=== PATIENT | male | born 1950 | race Caucasian/White ===

== ENCOUNTER → 2017-03-19 16:01 | Outpatient (CLI) | payer BC, SELFPAY ==
[2017-03-19 18:47] LABS: PSA,Total- Diagnostic 8.78 ng/mL (0.0-4.0)
== END ==
PROVIDERS: Family Provider Family Medicine; PCP Family Medicine; Visit Provider Nurse Practitioner Adult Health
DX: R97.20 Elevated prostate specific antigen [PSA] (principal)
CPT/HCPCS: 36415; 84153

== ENCOUNTER → 2017-04-16 17:48 | Outpatient (CLI) | payer BC, SELFPAY ==
--- NOTE | 2017-04-16 | IMM_PTH ---
PATIENT: NEIL POWERS LOC: [facility] U#:[id number] AGE/SX: 74/M ROOM: RE04/16/[address]: Dr. Gregor Frazier MD : 1950 BED: DIS: SPEC #: [id number] RECD: 04/18/17 11:41 STATUS: HOMA REKarime #: [id number] [place]: 04/16/17 00:[address]: Gregor Frazier DEPT: IMMUNOHISTOCHEMISTRY RECD BY: Adriana Zamora ENTERED: 04/18/17 11:43 SP TYPE: IMMUNO OTHR DR: Dr. Dom George MD Tissues: C - PROSTATE RIGHT F - PROSTATE LEFT Procedures: 34BE12 (add) P40 (add) 34BE12 (initial) PHYSICIAN & INSTITUTION [facility] [id number] SPECIMEN INFORMATION: Tissue Source: C ? Right prostate, base, core biopsy, F - Left prostate, base, core biopsy Clinical Info: Elevated PSA Specimen Number: [id number] C & F CPT code: 89348, 87447 x3 METHODOLOGY: Deparaffinized sections of prefer/formalin-fixed tissue or PAP/DQ stained slides are incubated with monoclonal/polyclonal antibodies/oligonucleotide probes. Localization is made via biotin free immunoperoxidase method. Appropriate controls are performed and reacted as expected. Results on target cell population are indicated in the following table: RESULTS: ANTIBODY / CLONE RESULT Block C P40 (BC28) positive 34BE12 (34BE12) positive Block F P40 (BC28) positive 34BE12 (34BE12) positive These tests were developed and their performance characteristics determined by [facility]. They may not have been cleared or approved by the U.S. Food and Drug Administration. The FDA has determined that such clearance or approval is not necessary. INTERPRETATION: C. Right prostate, base, core biopsy: Focal high-grade prostatic intraepithelial neoplasia (HGPIN). F. Left prostate, base, core biopsy: Focal high-grade prostatic intraepithelial neoplasia (HGPIN). SJ:charleen 04/19/17
--- NOTE | 2017-04-16 11:15 | PROSBIL_PTH ---
PATIENT: NEIL POWERS LOC: [facility] U#:[id number] AGE/SX: 74/M ROOM: RE04/16/[address]: Dr. Gregor Frazier MD : 1950 BED: DIS: SPEC #: [id number] RECD: 04/16/17 17:00 STATUS: HOMA [place] #: [id number] [place]: 04/16/17 11:[address]: Gregor Frazier DEPT: SURGICAL PATHOLOGY RECD BY: Robson Simons ENTERED: 04/17/17 10:39 SP TYPE: PROST BX SARAH DR: Dr. Dom George MD Tissues: A - PROSTATE RIGHT B - PROSTATE RIGHT C - PROSTATE RIGHT D - PROSTATE LEFT E - PROSTATE LEFT F - PROSTATE LEFT Procedures: PROSTATE BX HEADER OPERATION: Prostate biopsy PRE-OP DIAGNOSIS: Elevated PSA TISSUE SUBMITTED: A - Right apex, B - Right mid, C - Right base, D - Left apex, E - Left mid, F - Left base MICROSCOPIC DIAGNOSIS A. Right prostate, apex, core biopsy: Prostatic tissue, negative for malignancy. Focal mild chronic inflammation, minimal acute inflammation and atrophy. B. Right prostate, mid, core biopsy: Prostatic tissue, negative for malignancy. Focal mild chronic inflammation, minimal acute inflammation and atrophy. C. Right prostate, base, core biopsy: Focal high-grade prostatic intraepithelial neoplasia (HGPIN). See comment. D. Left prostate, apex, core biopsy: Prostatic tissue, negative for malignancy. Atrophy, mild chronic inflammation and minimal acute inflammation. E. Left prostate, mid, core biopsy: Prostatic tissue, negative for malignancy. Focal mild chronic inflammation. F. Left prostate, base, core biopsy: Focal high-grade prostatic intraepithelial neoplasia (HGPIN). See comment. SJ:rg 04/18/17 COMMENT C & F. Immunohistochemistry ([id number]) supports the above diagnosis. MICROSCOPIC DESCRIPTION Slides are reviewed. GROSS DESCRIPTION A - Received is one container designated prostate, right apex. The specimen consists of two elongated fragments of light martinez-white soft tissue each measuring 1 cm in length and 0.1 cm in diameter. The specimen is totally submitted in one cassette. B - Received is one container designated prostate, right mid. The specimen consists of two elongated fragments of light martinez-white soft tissue measuring 1 and 1.5 cm in length and 0.1 cm in diameter. The specimen is totally submitted in one cassette. C - Received is one container designated prostate, right base. The specimen consists of four elongated fragments of light martinez-white soft tissue measuring 0.3 to 0.5 cm in length and 0.1 cm in diameter. The specimen is totally submitted in one cassette. D - Received is one container designated prostate, left apex. The specimen consists of two elongated fragments of light martinez-white soft tissue each measuring 1 cm in length and 0.1 cm in diameter. The specimen is totally submitted in one cassette. E - Received is one container designated prostate, left mid. The specimen consists of two elongated fragments of light martinez-white soft tissue measuring 1 and 1.8 cm in length and 0.1 cm in diameter. The specimen is totally submitted in one cassette. F - Received is one container designated prostate, left base. The specimen consists of two elongated fragments of light martinez-white soft tissue each measuring 1.5 cm in length and 0.1 cm in diameter. The specimen is totally submitted in one cassette. / SJ:rg 04/17/17 TC:5 CPT: 57757 x6
== END ==
PROVIDERS: Family Provider Family Medicine; Visit Provider Urology
DX: R97.20 Elevated prostate specific antigen [PSA] (principal)
CPT/HCPCS: 88305; 88341; 88342; G0416

== ENCOUNTER → 2017-09-03 10:03 | Outpatient (CLI) | payer BC, SELFPAY ==
[2017-09-03 10:55] LABS: PSA,Total- Diagnostic 8.52 ng/mL (0.0-4.0)
== END ==
PROVIDERS: Family Provider Family Medicine; PCP Family Medicine; Visit Provider Urology
DX: R97.20 Elevated prostate specific antigen [PSA] (principal)
CPT/HCPCS: 36415; 84153

== ENCOUNTER → 2017-09-18 16:16 | Outpatient (CLI) | payer BC, SELFPAY ==
--- NOTE | 2017-09-18 | IMM_PTH ---
PATIENT: NEIL POWERS LOC: [facility] U#:[id number] AGE/SX: 74/M ROOM: RE09/18/[address]: Dr. Gregor Frazier MD : 1950 BED: DIS: SPEC #: [id number] RECD: 09/20/17 12:44 STATUS: HOMA REKarime #: [id number] [place]: 09/18/17 00:[address]: Gregor Frazier DEPT: IMMUNOHISTOCHEMISTRY RECD BY: Adriana Zamora ENTERED: 09/20/17 12:46 SP TYPE: IMMUNO OTHR DR: Dr. Dom George MD Tissues: D - PROSTATE LEFT E - PROSTATE LEFT Procedures: 34BE12 (add) P40 (add) 34BE12 (initial) PHYSICIAN & INSTITUTION [place] [id number] SPECIMEN INFORMATION: Tissue Source: D ? Left prostate apex, E ? Left prostate mid Clinical Info: Elevated PSA Specimen Number: [id number] D & E CPT code: 87468, 27930 x3 METHODOLOGY: Deparaffinized sections of prefer/formalin-fixed tissue or PAP/DQ stained slides are incubated with monoclonal/polyclonal antibodies/oligonucleotide probes. Localization is made via biotin free immunoperoxidase method. Appropriate controls are performed and reacted as expected. Results on target cell population are indicated in the following table: RESULTS: ANTIBODY / CLONE RESULT Block D P40 (BC28) positive 34BE12 (34BE12) positive Block E P40 (BC28) positive 34BE12 (34BE12) positive These tests were developed and their performance characteristics determined by [facility]. They may not have been cleared or approved by the U.S. Food and Drug Administration. The FDA has determined that such clearance or approval is not necessary. INTERPRETATION: D. Left prostate, apex, core biopsy: Negative for adenocarcinoma. E. Left prostate, mid, core biopsy: Negative for adenocarcinoma. SJ:charleen 09/21/17
--- NOTE | 2017-09-18 11:45 | PROSBIL_PTH ---
PATIENT: NEIL POWERS LOC: [facility] U#:[id number] AGE/SX: 74/M ROOM: RE09/18/[address]: Dr. Gregor Frazier MD : 1950 BED: DIS: SPEC #: [id number] RECD: 09/18/17 15:00 STATUS: HOMA [place]KA #: [id number] [place]: 09/18/17 11:[address]: Gregor Frazier DEPT: SURGICAL PATHOLOGY RECD BY: Trisha Brown ENTERED: 09/19/17 09:59 SP TYPE: PROST BX SARAH DR: Michelle Giraldo DO Tissues: A - PROSTATE RIGHT B - PROSTATE RIGHT C - PROSTATE RIGHT D - PROSTATE LEFT E - PROSTATE LEFT F - PROSTATE LEFT Procedures: PROSTATE BX HEADER OPERATION: Prostate biopsy PRE-OP DIAGNOSIS: Elevated PSA TISSUE SUBMITTED: A - Right apex, B - Right mid, C - Right base, D - Left apex, E - Left mid, F - Left base MICROSCOPIC DIAGNOSIS A. Right prostate, apex, core biopsy: Prostatic tissue, negative for malignancy. Focal acute and chronic inflammation. B. Right prostate, mid, core biopsy: Prostatic tissue, negative for malignancy. C. Right prostate, base, core biopsy: Prostatic tissue, negative for malignancy. D. Left prostate, apex, core biopsy: Prostatic tissue, negative for malignancy. Focal atrophy. See comment. E. Left prostate, mid, core biopsy: Prostatic tissue, negative for malignancy. Focal atrophy. See comment. F. Left prostate, base, core biopsy: Prostatic tissue, negative for malignancy. Focal atrophy. SJ:charleen 09/20/17 COMMENT D & E. Immunohistochemistry ([id number]) supports the above diagnosis. Please make reference to previous specimen ([id number]), right prostate, base and left prostate, base, core biopsy with diagnosis of ?focal high-grade prostatic intraepithelial neoplasia. This case has been reviewed in consultation with Dr. Keller who concurs with the above diagnosis. MICROSCOPIC DESCRIPTION Slides are reviewed. GROSS DESCRIPTION A - Received is one container designated prostate, right apex. The specimen consists of two elongated fragments of light martinez-white soft tissue each measuring 1.5 cm in length and 0.1 cm in diameter. The specimen is totally submitted in one cassette. B - Received is one container designated prostate, right mid. The specimen consists of one elongated fragment of light martinez-white soft tissue measuring 2 cm in length and 0.1 cm in diameter. The specimen is totally submitted in one cassette. C - Received is one container designated prostate, right base. The specimen consists of three elongated fragments of light martinez-white soft tissue each measuring 1 cm in length and 0.1 cm in diameter. The specimen is totally submitted in one cassette. D - Received is one container designated prostate, left apex. The specimen consists of two elongated fragments of light martinez-white soft tissue each measuring 1 cm in length and 0.1 cm in diameter. The specimen is totally submitted in one cassette. E - Received is one container designated prostate, left mid. The specimen consists of two elongated fragments of light martinez-white soft tissue each measuring 1.5 cm in length and 0.1 cm in diameter. The specimen is totally submitted in one cassette. F - Received is one container designated prostate, left base. The specimen consists of two elongated fragments of light martinez-white soft tissue each measuring 1 cm in length and 0.1 cm in diameter. The specimen is totally submitted in one cassette. / AM:charleen 09/19/17 TC:5 CPT: 51335 x6
== END ==
PROVIDERS: Family Provider Family Medicine; PCP Family Medicine; Visit Provider Urology
DX: R97.20 Elevated prostate specific antigen [PSA] (principal)
CPT/HCPCS: 88305; 88341; 88342; G0416

== ENCOUNTER 2017-12-24 05:27 | Day surgery (SDC) | payer BC, SELFPAY ==
[2017-12-20 14:46] VITALS: BMI 27.7
--- NOTE | 2017-12-20 15:26 | EKG12_ITS ---
Test Reason : PREOP Blood Pressure : / mmHG Vent. Rate : 070 BPM Atrial Rate : 070 BPM P-R Int : 228 ms QRS Dur : 094 ms QT Int : 370 ms P-R-T Axes : 044 068 056 degrees QTc Int : 399 ms Sinus rhythm with 1st degree A-V block Low voltage QRS Septal infarct , age undetermined Abnormal ECG Confirmed by MICHELLE LOW, RADHA ([id number]), editorial cartoonist BONNIE NUNES ([id number]) on 12/21/2017 3:30:43 PM Referred By: Dom Bains Confirmed By:RADHA MARTINEZ MD
[2017-12-20 15:59] LABS: Hematocrit 40.4 % (40-54); Hemoglobin 13.7 g/dl (13.0-16.5); Mean Corp Hgb Conc 33.9 g/gl (32-36); Mean Corpuscular Hgb 31.9 pg (27.0-32.0); Mean Platelet Vol. 9.7 fl (6.2-12.0); Platelet Count 252 K/mm3 (150-450); RBC Distribution Width CV 13.4 % (11.6-14.6); RBC Distribution Width SD 44.7 fl (35.1-43.9); Scan Indicated on CBC? Y/N NO; White Blood Count 6.6 K/mm3 (4.4-11.0)
[2017-12-20 16:45] LABS: Anion Gap 9 (5-15); BUN 19 mg/dL (7-18); Calcium,Total 8.4 mg/dL (8.5-10.1); Chloride 107 mmol/L (98-107); Creatinine, Serum 0.86 mg/dL (0.70-1.30); EST Glomerular Filtration Rate 94 mL/min (>60); Est Glom Filt Rate - Afr Amer 114 mL/min (>60); Glucose 81 mg/dL (74-106); Potassium 4.3 mmol/L (3.5-5.1); Sodium Level 141 mmol/L (136-145)
[2017-12-24] VITALS (8 sets, daily range): BP systolic 107–170; BP diastolic 70–97; PULSE 54–70; RESP 16–18; TEMP 36.2–37; O2SAT 95–100; BMI 29.0
[2017-12-24] MEDS: Cefazolin 2 GM in 0.9% Normal Saline 100 ML IV (07:07)
--- NOTE | 2017-12-24 07:08 | PCM.DC.GS ---
Discharge Diet: Light diet - advance as tolerated - if you have questions about your diet instructions, please talk to you doctor. Discharge Activity: May Not Drive - for 5 days or while taking narcotic pain medicine. May shower in (days): 1 Lifting Restrictions: 10 pounds Call your doctor if your incision/area has: Continuous Slow Oozing, Sudden Increased Bleeding, Increased Pain/ Swelling, Increased Redness, Foul Smelling Discharge Call your doctor if you observe: Fever of 101 or Higher Suture Line Care: Avoid Pulling/Pushing, Avoid Pinching/Bending Additional Dressing/Incision Instructions:: Change or remove dressing in 4 days. Leave steri-strips in place for 1 week. Allergies/Adverse Reactions: Allergies No Known Allergies Allergy (Verified 12/20/17 14:47) Medications to take at Discharge apremilast 30 mg tablet 30 mg PO BID 09/17/17 aspirin 81 mg tablet,delayed release 81 mg PO QDAY 09/17/17 atorvastatin 40 mg tablet 40 mg PO QDAY 09/17/17 duloxetine 60 mg capsule,delayed release 120 mg PO QDAY cap 09/17/17 lisinopril 10 mg tablet 5 mg PO QDAY 09/17/17 Fish Oil/Borage/Flax/Om3,6,9#1 [[place] 3-6-9 Complex Softgel] 800 mg PO DAILY 12/20/17 Meloxicam [Mobic] 15 mg PO DAILY 12/20/17 Vitamin B Complex/Folic Acid [Super B Maxi Complex Caplet] 0.4 mg PO DAILY 12/20/17 Vitamin E (Dl,Tocopheryl Acet) [Vitamin E] 400 unit PO DAILY 12/20/17 Hydrocodone Bitart/Apap 5-325 [[place] 5MG-325MG] 1 tablet PO Q6H PRN PRN 3 Days #10 tablet 12/24/17 The following prescriptions were given: Hydrocodone Bitart/Apap 5-325 [[place] 5MG-325MG] 1 tablet PO Q6H PRN PRN 3 Days #10 tablet PRN Reason: Pain Primary Care Physician: Michelle Giraldo MD [Primary Care Provider] - Test Results: Test results from this visit will be discussed in further detail at your follow-up appointment, if applicable. Please Follow Up With: Dom Bains MD - [phone] When: Call to make an appointment to be seen in about 10 days.
[2017-12-24] MEDS: Bupivacaine Mpf 0.5% 30 ML VIAL (07:24)
--- NOTE | 2017-12-24 08:13 | PCM.OPRPT ---
Problem List (1) Bilateral inguinal hernia Status: Acute Qualifiers: Obstruction and gangrene presence: without obstruction or gangrene Recurrence: non-recurrent Qualified Code(s): K40.20 - Bilateral inguinal hernia, without obstruction or gangrene, not specified as recurrent Report of Operation Date of Procedure: 12/24/17 Pre-Operative Diagnosis: Right inguinal hernia Post-Operative Diagnosis: Direct right inguinal hernia Surgery/Procedure Performed:: Lester right inguinal herniorrhaphy Description of Surgical Findings:: Timeout and informed consent was obtained. 67-year-old gentleman was taken down from placement table underwent monitored anesthesia care. Ancef 2 g given intravenously preoperatively. The right groin was sterilely prepped and draped. 1% lidocaine mixed 50-50 with 0.5% Marcaine was used as a local anesthetic. Throughout the procedure 33 cc was used. A transverse incision was made the right groin sharp dissection carried down through the subcutaneous tissue. Electrocautery was used for hemostasis. The external ring was identified and the external oblique was incised along with his fascia. The ilioinguinal nerve identified and protected. Patient had a sizable direct defect. The cord structures were dissected free. The direct defect was dissected free. Dissection was performed overlying the pubic tubercle and then to the internal ring. The transversalis fascia was then approximated to itself in an imbricating fashion completely reducing the direct defect this was performed from the pubic tubercle to the internal ring with a running 3-0 Ethibond. An apron covered of Bard mesh preshaped keyhole was selected. Lot number [id number] reference #[id number] expiring date 06/02/2022. He was placed around the internal ring and secured to itself with 3-0 Ethibond. It was placed so as to cover the direct space overlying the pubic tubercle and the tails were trimmed and was placed beneath the external oblique laterally. The ilioinguinal nerve was carefully preserved and protected. The mesh was secured in place with multiple interrupted 3-0 Ethibond sutures to the pubic tubercle shelving edge of Poupart's and the aponeurosis of the internal and external oblique. Excellent coverage was achieved. The external oblique was approximated with several sutures of interrupted 3-0 Vicryl. Tanya's fascia approximated with the same. The skin edges were approximated running septic or 4-0 Monocryl. Steri-Strips Telfa and OpSite dressings applied. Sponge and instrument and needle count were reported to the surgeon to be correct. Blood loss was minimal. Specimens none. Drains none. Blood loss minimal. He was taken to the recovery area in satisfactory condition. Dom Bains M.D., F.A.C.S. Type of Anesthesia:: Local MAC Anesthesiologist: Jose Palacios
== END 2017-12-24 10:26 | disposition home or self-care (01) ==
LOC: SDC 05:27 → AC 05:29
PROVIDERS: Family Provider Family Medicine; PCP Family Medicine; Referring Provider Surgery; Visit Provider Surgery
PROC: (CPT 49505; principal; 2017-12-24 07:00)
DX: K40.20 Bilateral inguinal hernia, without obstruction or gangrene, not specified as recurrent (principal); I25.10 Atherosclerotic heart disease of native coronary artery without angina pectoris; I44.0 Atrioventricular block, first degree; L40.50 Arthropathic psoriasis, unspecified; E78.00 Pure hypercholesterolemia, unspecified; G47.30 Sleep apnea, unspecified; Z79.82 Long term (current) use of aspirin; Z79.899 Other long term (current) drug therapy; I25.2 Old myocardial infarction; F17.200 Nicotine dependence, unspecified, uncomplicated; Z95.5 Presence of coronary angioplasty implant and graft
CPT/HCPCS: 49505; 36415; 80048; 85027; 93005; J7120; C1781

== ENCOUNTER → 2018-03-11 16:14 | Outpatient (CLI) | payer BC, SELFPAY ==
[2017-12-24 05:48] VITALS: BMI 29.0
[2018-03-11 17:35] LABS: PSA,Total- Diagnostic 9.98 ng/mL (0.0-4.0)
== END ==
PROVIDERS: Family Provider Family Medicine; PCP Family Medicine; Referring Provider Urology; Visit Provider Urology
DX: R97.20 Elevated prostate specific antigen [PSA] (principal)
CPT/HCPCS: 36415; 84153

== ENCOUNTER 2018-03-20 11:20 | Day surgery (SDC) | payer BC, SELFPAY ==
[2018-03-12 08:33] VITALS: BMI 29.0
--- NOTE | 2018-03-13 16:25 | EKG12_ITS ---
Test Reason : PRE-OP Blood Pressure : / mmHG Vent. Rate : 069 BPM Atrial Rate : 069 BPM P-R Int : 224 ms QRS Dur : 092 ms QT Int : 376 ms P-R-T Axes : 051 085 068 degrees QTc Int : 402 ms Sinus rhythm with sinus arrhythmia with 1st degree A-V block Septal infarct , age undetermined Abnormal ECG Confirmed by MICHELLE LOW, RADHA ([id number]), publishing editor BONNIE NUNES ([id number]) on 03/18/2018 9:40:50 AM Referred By: Dom Bains Confirmed By:RADHA MARTINEZ MD
[2018-03-13 16:51] LABS: Hematocrit 41.3 % (40-54); Hemoglobin 13.6 g/dl (13.0-16.5); Mean Corp Hgb Conc 32.9 g/gl (32-36); Mean Corpuscular Hgb 31.6 pg (27.0-32.0); Mean Platelet Vol. 9.8 fl (6.2-12.0); Platelet Count 239 K/mm3 (150-450); RBC Distribution Width SD 44.2 fl (35.1-43.9); White Blood Count 7.1 K/mm3 (4.4-11.0)
[2018-03-13 16:56] LABS: Scan Indicated on CBC? Y/N NO
[2018-03-13 17:11] LABS: Anion Gap 3 (5-15); BUN 20 mg/dL (7-18); BUN/Creat Ratio 22.7 RATIO (10-20); Calcium,Total 8.4 mg/dL (8.5-10.1); Chloride 107 mmol/L (98-107); Creatinine, Serum 0.88 mg/dL (0.70-1.30); EST Glomerular Filtration Rate 92 mL/min (>60); Est Glom Filt Rate - Afr Amer 111 mL/min (>60); Glucose 94 mg/dL (74-106); Potassium 4.3 mmol/L (3.5-5.1); Sodium Level 137 mmol/L (136-145)
[2018-03-20] VITALS (12 sets, daily range): BP systolic 89–139; BP diastolic 62–92; PULSE 57–74; RESP 16–20; TEMP 36.1–36.8; O2SAT 92–100; BMI 28.8
[2018-03-20] MEDS: Bupivacaine Mpf 0.5% 30 ML VIAL (13:20)
--- NOTE | 2018-03-20 13:30 | LIP_PTH ---
PATIENT: NEIL POWERS LOC: [facility] U#:[id number] AGE/SX: 67/M ROOM: RE03/20/[address]: Dr. Dom Bains MD : 1950 BED: DIS: 03/20/2018 SPEC #: [id number] RECD: 03/21/18 08:20 STATUS: HOMA [place]KA #: [id number] [place]: 03/20/18 13:[address]: Dom Bains DEPT: SURGICAL PATHOLOGY RECD BY: Robson Simons ENTERED: 03/21/18 11:48 SP TYPE: LIPOMA OTHR DR: Michelle Giraldo, DO Tissues: Soft tissues, NOS Procedures: Surgery Specimen Level II HEADER OPERATION: Open left inguinal hernia repair with mesh PRE-OP DIAGNOSIS: Left inguinal hernia TISSUE SUBMITTED: Cord lipoma MICROSCOPIC DIAGNOSIS Soft tissue of left inguinal region: Cord lipoma. AM:charleen 03/22/18 MICROSCOPIC DESCRIPTION Slides are reviewed. GROSS DESCRIPTION Received in fixative is one container labeled with the patient's name and designated cord lipoma. The specimen consists of a piece of yellow adipose tissue measuring 3.5 x 1 x 0.8 cm. The specimen is bisected and reveals yellow adipose cut surfaces without area of hemorrhage, necrosis or cystic degeneration. The entire specimen is submitted in one cassette. / SJ:charleen 03/21/18 TC:5 CPT: 73950
[2018-03-20] MEDS: Cefazolin 2 GM in 0.9% Normal Saline 100 ML IV (14:06)
--- NOTE | 2018-03-20 14:14 | DCINST_ITS ---
Discharge Diet: Light diet - advance as tolerated - if you have questions about your diet instructions, please talk to you doctor. Discharge Activity: May Not Drive - for 1 week or while taking narcotic pain medicine. May shower in (days): 1 Lifting Restrictions: 10 pounds Call your doctor if your incision/area has: Continuous Slow Oozing, Sudden Increased Bleeding, Increased Pain/ Swelling, Increased Redness, Foul Smelling Discharge Call your doctor if you observe: Fever of 101 or Higher Suture Line Care: Avoid Pulling/Pushing, Avoid Pinching/Bending Additional Dressing/Incision Instructions:: Change or remove dressing in 4 days. Leave steri-strips in place for 1 week. Allergies/Adverse Reactions: Allergies No Known Allergies Allergy (Verified 03/13/18 10:03) Medications to take at Discharge apremilast 30 mg tablet 30 mg PO BID 09/17/17 aspirin 81 mg tablet,delayed release 81 mg PO QDAY 09/17/17 atorvastatin 40 mg tablet 40 mg PO QDAY 09/17/17 duloxetine 60 mg capsule,delayed release 120 mg PO QDAY cap 09/17/17 lisinopril 10 mg tablet 5 mg PO QDAY 09/17/17 Fish Oil/Borage/Flax/Om3,6,9 1 [[place] 3-6-9 Complex Softgel] 800 mg PO DAILY 12/20/17 Vitamin B Complex/Folic Acid [Super B Maxi Complex Caplet] 0.4 mg PO DAILY 12/20/17 Vitamin E 400 unit PO DAILY 03/13/18 Hydrocodone Bitart/Apap 5-325 [[place] 5MG-325MG] 1 tablet PO Q6H PRN PRN 3 Days #10 tablet 03/20/18 The following prescriptions were given: Hydrocodone Bitart/Apap 5-325 [[place] 5MG-325MG] 1 tablet PO Q6H PRN PRN 3 Days #10 tablet PRN Reason: Pain Primary Care Physician: Michelle Giraldo MD [Primary Care Provider] - Test Results: Test results from this visit will be discussed in further detail at your follow- up appointment, if applicable. Please Follow Up With: Dom Bains MD - [phone] When: Call to make an appointment to be seen in about 10 days.
--- NOTE | 2018-03-20 15:25 | OP.PCM_ITS ---
Problem List (1) Left inguinal hernia Status: Acute Report of Operation Date of Procedure: 03/20/18 Pre-Operative Diagnosis: Left inguinal hernia Post-Operative Diagnosis: Direct left inguinal hernia, small cord lipoma Surgery/Procedure Performed:: Lester left inguinal herniorrhaphy with excision cord lipoma Description of Surgical Findings:: Timeout and informed consent was obtained. 67-year-old gent was taken out from placement table underwent monitored anesthesia care. Ancef 2 g given intravenous preoperatively. The left groin was sterilely prepped draped. Ioban draping was used as well. 1% lidocaine mixed 50-50 with 0.5% Marcaine was used as a local anesthetic. Throughout the procedure total 16 cc was used. A transverse incision was made in the left groin sharp dissection carried down through the subtenons. The external oblique identified and was incised. Hemostasis obtained throughout with electrocautery. Inguinal nerve identified and protected with the cord structures. Circumferential control was obtained the cord structures and a small cord lipoma was identified. This dissected free to the internal ring and ligated there with 3-0 Vicryl suture ligature. Then I dissected overlying the pubic tubercle identifying the direct space indirect area. I used a 3-0 Ethibond securing from the pubic tubercle in a running fashion imbricating the transversalis fascia to the internal ring. A Prolene mesh size 1.8 inch x 4 inch was selected. Product code p.m. SK. Lot number [id number] made by [employer]. Expiry date 09/04/2021. Placed so that wrapped around the internal ring I secured it laterally with interrupted 3-0 Ethibond I secured to the pubic tubercle the aponeurosis of the internal and external oblique and the shelving edge of Poupart's with interrupted 3-0 Ethibond sutures. Good positioning was achieved. The tails were tucked beneath the external oblique laterally. The external oblique was closed with a 3-0 Vicryl. Subdermal tissues proximal interrupted 4-0 Monocryl. Skin edges proximal and running septic or 4 Monocryl. Steri-Strips Telfa OpSite dressings applied. Sponge and instrument and needle counts were reported the surgeon be correct. Blood loss was minimal. He tolerated the procedure well was taken to the recovery area in satisfactory condition without apparent complication. Specimen Cord lipoma. Drains none. Blood loss minimal. Dom Bains M.D., F.A.C.S. Type of Anesthesia:: Local MAC Anesthesiologist: Marv Dickinson
--- NOTE | 2018-03-20 16:06 | SUR.PHASEI ---
PT BP REMAINS LOW- SWITCHED VS Q 15 MINS
== END 2018-03-20 17:45 | disposition home or self-care (01) ==
LOC: SDC 11:20 → AC 11:22
PROVIDERS: Family Provider Family Medicine; PCP Family Medicine; Referring Provider Surgery; Visit Provider Surgery
PROC: (CPT 49505; principal; 2018-03-20 13:15)
DX: K40.90 Unilateral inguinal hernia, without obstruction or gangrene, not specified as recurrent (principal); I25.10 Atherosclerotic heart disease of native coronary artery without angina pectoris; E78.00 Pure hypercholesterolemia, unspecified; L40.50 Arthropathic psoriasis, unspecified; G47.30 Sleep apnea, unspecified; F17.290 Nicotine dependence, other tobacco product, uncomplicated; I25.2 Old myocardial infarction; Z79.82 Long term (current) use of aspirin; Z79.899 Other long term (current) drug therapy; Z95.5 Presence of coronary angioplasty implant and graft
CPT/HCPCS: 49505; 36415; 80048; 85027; 88302; 88304; 93005; C1776; J7120; J2405

== ENCOUNTER → 2018-11-21 09:35 | Outpatient (CLI) | payer BC, SELFPAY ==
[2018-03-20 11:38] VITALS: BMI 28.8
[2018-11-21 10:32] LABS: Cholesterol 105 mg/dL (200); High Density Lipoprotein 38 mg/dL; Triglycerides 111 mg/dL; Very Low Density Lipoprotein 22 mg/dL (5-40)
== END ==
PROVIDERS: Family Provider Nurse Practitioner Family; PCP Nurse Practitioner Family; Referring Provider Internal Medicine Interventional Cardiology; Visit Provider Internal Medicine Interventional Cardiology
DX: E78.5 Hyperlipidemia, unspecified (principal); I10 Essential (primary) hypertension; I25.10 Atherosclerotic heart disease of native coronary artery without angina pectoris; Z95.5 Presence of coronary angioplasty implant and graft
CPT/HCPCS: 36415; 80061

== ENCOUNTER → 2019-03-13 10:10 | Outpatient (CLI) | payer BC, SELFPAY ==
[2018-03-20 11:38] VITALS: BMI 28.8
[2019-03-13 11:07] LABS: PSA,Total- Diagnostic 9.34 ng/mL (0.0-4.0)
== END ==
PROVIDERS: PCP Nurse Practitioner Family; Referring Provider Urology; Visit Provider Urology
DX: R97.20 Elevated prostate specific antigen [PSA] (principal)
CPT/HCPCS: 36415; 84153

== ENCOUNTER → 2019-12-02 08:25 | Outpatient (CLI) | payer BC, SELFPAY ==
[2018-03-20 11:38] VITALS: BMI 28.8
[2019-12-02 11:12] LABS: ALB/GLOB Ratio 0.9 RATIO (0.9-2.4); AST(SGOT) 23 U/L (15-37); Alanine Aminotransfer ALT/SGPT 31 U/L (16-61); Albumin, Serum 3.7 g/dL (3.2-5.0); Alkaline Phosphatase 65 U/L (45-117); Anion Gap 2 (5-15); BUN 18 mg/dL (7-18); Calcium,Total 9.1 mg/dL (8.5-10.1); Chloride 109 mmol/L (98-107); Cholesterol 114 mg/dL (200); Creatinine, Serum 0.94 mg/dL (0.70-1.30); Globulin 4.1 g/dL (2.2-4.2); Glucose 96 mg/dL (74-106); High Density Lipoprotein 44 mg/dL; Potassium 4.7 mmol/L (3.5-5.1); Protein, Total 7.8 g/dL (6.4-8.2); Sodium Level 140 mmol/L (136-145); Triglycerides 84 mg/dL; Very Low Density Lipoprotein 17 mg/dL (5-40)
[2019-12-02 11:20] LABS: BUN/Creat Ratio 19.2 RATIO (10-20); EST Glomerular Filtration Rate 85 mL/min (>60); Est Glom Filt Rate - Afr Amer 103 mL/min (>60)
== END ==
PROVIDERS: PCP Nurse Practitioner Family
DX: E78.5 Hyperlipidemia, unspecified (principal)
CPT/HCPCS: 36415; 80053; 80061

== ENCOUNTER → 2020-03-29 09:21 | Outpatient (CLI) | payer OTHER, SELFPAY ==
[2018-03-20 11:38] VITALS: BMI 28.8
== END ==
PROVIDERS: PCP Nurse Practitioner Family; Referring Provider Urology; Visit Provider Urology
DX: R97.20 Elevated prostate specific antigen [PSA] (principal)
CPT/HCPCS: 36415; 84153

== ENCOUNTER 2020-04-15 17:03 | Outpatient (RCR) | payer OTHER, SELFPAY ==
[2018-03-20 11:38] VITALS: BMI 28.8
[2020-04-15] MEDS: COVID-19 VACC, MRNA(PFIZER)/PF 30 MCG/0.3 ML SYRINGE IM (07:27)
[2020-05-06] MEDS: COVID-19 VACC, MRNA(PFIZER)/PF 30 MCG/0.3 ML SYRINGE IM (07:40)
== END 2020-07-13 23:59 ==
LOC: IMMUN 17:03
PROVIDERS: PCP Nurse Practitioner Family; Visit Provider Family Medicine
DX: Z23 Encounter for immunization (principal)
CPT/HCPCS: 0001A; 0002A; 91300

== ENCOUNTER → 2020-04-28 07:37 | Outpatient (CLI) | payer OTHER, SELFPAY ==
[2018-03-20 11:38] VITALS: BMI 28.8
--- NOTE | 2020-04-28 08:05 | MRI_ITS ---
MR Pelvis Male WO/W Contrast 04/28/2020 8:24 AM COMPARISON: None CLINICAL HISTORY: 69 yo man with elevated PSA. Most recent PSA = Not provided TECHNIQUE: Standard prostate MRI protocol with and without contrast and without endorectal coil. FINDINGS: Prostate volume: 48 cc Length of membranous urethra: 20 mm Post-biopsy hemorrhage: None Multiparametric MR evaluation: Heterogeneous appearance of the central gland is consistent with benign prostatic hyperplasia. No suspicious T2 hypointense or diffusion restricting lesions. Seminal vesicles: Normal Lymph nodes: No lymphadenopathy in the field of view. Bones: No suspicious lesions in the field of view. MRI/Pelvis W/WO Contrast IMPRESSION: PI-RADS 2: Benign prostatic hyperplasia. Electronically Signed: Mark Davis MD at 18:03 EDT Tel , Service support ,
[2020-04-28 08:06] LABS: CREATININE FINGERSTICK 0.8 mg/dL (0.70-1.30); EGFR FINGERSTICK > 60.0000 mL/min (>60)
== END ==
PROVIDERS: PCP Nurse Practitioner Family; Referring Provider Urology; Visit Provider Urology
DX: R97.20 Elevated prostate specific antigen [PSA] (principal)
CPT/HCPCS: 72197; A9575

== ENCOUNTER → 2020-10-25 11:33 | Outpatient (CLI) | payer MEDICARE, SELFPAY ==
[2018-03-20 11:38] VITALS: BMI 28.8
[2020-10-25 12:32] LABS: Creatinine, Serum 0.81 mg/dL (0.70-1.30); EST Glomerular Filtration Rate 101 mL/min (>60); Est Glom Filt Rate - Afr Amer 122 mL/min (>60)
[2020-10-26 19:34] LABS: PSA, Free 2.05 ng/mL; PSA, Free % 19.7 % (.); PSA, Total Ultrasensitive 10.4 ng/mL (0.0-4.0)
== END ==
PROVIDERS: PCP Nurse Practitioner Family; Referring Provider Urology; Visit Provider Urology
DX: Z01.812 Encounter for preprocedural laboratory examination (principal); R97.20 Elevated prostate specific antigen [PSA]
CPT/HCPCS: 36415; 82565; 84153; 84154

== ENCOUNTER → 2021-10-25 | Outpatient (CLI) | payer MEDICARE, SELFPAY | END | disposition home or self-care (01) | LOC: LAB 08:15 | PROVIDERS: PCP Nurse Practitioner Family; Visit Provider Urology | DX: R97.20 Elevated prostate specific antigen [PSA] (principal) | CPT/HCPCS: 36415; 84153 ==

== ENCOUNTER → 2021-11-17 | Outpatient (CLI) | payer MEDICARE, SELFPAY ==
--- NOTE | 2021-11-17 08:00 | PROSBIL_PTH ---
PATIENT: NEIL POWERS [facility] U#:[id number] AGE/SX: 71/M ROOM: RE11/17/[address]: Dr. Gregor Frazier MD : 1950 BED: DIS: 11/17/2021 SPEC #: [id number] RECD: 11/17/21 16:00 STATUS: HOMA [place] #: [id number] [place]: 11/17/21 08:[address]: Gregor Frazier DEPT: SURGICAL PATHOLOGY RECD BY: Trisha Brown ENTERED: 11/18/21 07:58 SP TYPE: PROST BX SARAH DR: Jean-Paul Madsen, DRYWALL TAPER-C Tissues: A - PROSTATE RIGHT B - PROSTATE RIGHT C - PROSTATE RIGHT D - PROSTATE LEFT E - PROSTATE LEFT F - PROSTATE LEFT Procedures: PROSTATE BX HEADER OPERATION: Prostate biopsy PRE-OP DIAGNOSIS: Elevate PSA R97.20 TISSUE SUBMITTED: A - Right apex, B - Right mid, C - Right base, D - Left apex, E - Left mid, F - Left base MICROSCOPIC DIAGNOSIS A. Right prostate, apex, core biopsy: Prostatic tissue, negative for malignancy. B. Right prostate, mid, core biopsy: Prostatic tissue, negative for malignancy. Focal chronic inflammation. C. Right prostate, base, core biopsy: Prostatic tissue, negative for malignancy. D. Left prostate, apex, core biopsy: Prostatic tissue, negative for malignancy. Focal chronic inflammation. E. Left prostate, mid, core biopsy: Prostatic tissue, negative for malignancy. Focal atrophy and chronic inflammation. F. Left prostate, base, core biopsy: Prostatic tissue, negative for malignancy. Focal atrophy and chronic inflammation. SJ:charleen 11/21/2021 MICROSCOPIC DESCRIPTION Slides are reviewed. GROSS DESCRIPTION A - Received is one container designated prostate, right apex. The specimen consists of two elongated fragments of light martinez-white soft tissue measuring 0.7 and 1 cm in length and 0.1 cm in diameter. The specimen is totally submitted in one cassette. B - Received is one container designated prostate, right mid. The specimen consists of two elongated fragments of light martinez-white soft tissue each measuring 1.5 cm in length and 0.1 cm in diameter. The specimen is totally submitted in one cassette. C - Received is one container designated prostate, right base. The specimen consists of two elongated fragments of light martinez-white soft tissue measuring 1 and 1.5 cm in length and 0.1 cm in diameter. The specimen is totally submitted in one cassette. D - Received is one container designated prostate, left apex. The specimen consists of two elongated fragments of light martinez-white soft tissue each measuring 1.5 cm in length and 0.1 cm in diameter. The specimen is totally submitted in one cassette. E - Received is one container designated prostate, left mid. The specimen consists of two elongated fragments of light martinez-white soft tissue measuring 1 and 1.5 cm in length and 0.1 cm in diameter. The specimen is totally submitted in one cassette. F - Received is one container designated prostate, left base. The specimen consists of two elongated fragments of light martinez-white soft tissue each measuring 1.7 cm in length and 0.1 cm in diameter. The specimen is totally submitted in one cassette. / SJ:rg 11/18/2021 TC:3 CPT: G0146
== END | disposition home or self-care (01) ==
LOC: LABSPEC 16:59
PROVIDERS: PCP Nurse Practitioner Family; Visit Provider Urology
DX: R97.20 Elevated prostate specific antigen [PSA] (principal)
CPT/HCPCS: 88305; G0416

== ENCOUNTER → 2022-05-23 | Outpatient (CLI) | payer MEDICARE, SELFPAY | END | disposition home or self-care (01) | LOC: LAB 08:05 | PROVIDERS: PCP Nurse Practitioner Family; Referring Provider Urology; Visit Provider Urology | DX: R97.20 Elevated prostate specific antigen [PSA] (principal) | CPT/HCPCS: 36415; 84153 ==

== ENCOUNTER → 2022-06-14 | Outpatient (CLI) | payer MEDICARE, SELFPAY ==
--- NOTE | 2022-06-14 12:34 | MRI_ITS ---
STUDY: MR PELVIS WITH AND WITHOUT CONTRAST (PROSTATE) REASON FOR EXAM: Male, 71 years old. Elevated PSA TECHNIQUE: Standardized multiparametric prostate MRI with T1, T2, DWI/ADC sequences were obtained in 3 orthogonal planes, and dynamic contrast enhancement sequences. ml of Yes contrast material was administered intravenously for the contrast portion of the examination. COMPARISON: 04/28/2020 FINDINGS: The prostate volume measures 51 mm3. The contours of the prostate gland are lobulated. There is mass effect on the bladder base. The transition zone is heterogenous. PI-RADS DWI score 2 - Hypointense within a BPH nodule on ADC. PI-RADS T2W score 2 - A mostly encapsulated nodule OR a homogeneous circumscribed nodule without encapsulation (atypical nodule) or a homogeneous mildly hypointense area between nodules.. Contrast enhancement no early or contemporaneous enhancement; or diffuse multifocal enhancement NOT corresponding to a focal finding on T2W and/or DWI or focal ehancement responding to a lesion demonstrating features of BPH onT2WI (including features of extruded BPH in the PZ). The peripheral zone is homogenous. PI-RADS DWI score 1 - No abnormality (normal) on ADC or high b-value DWI. PI-RADS T2W score 1 - Uniformaly hyperintense (normal). Contrast enhancement no early or contemporaneous enhancement; or diffuse multifocal enhancement NOT corresponding to a focal finding on T2W and/or DWI or focal enhancement responding to a lesion demonstrating features of BPH onT2WI (including features of extruded BPH in the PZ). The seminal vesicles demonstrate normal margins and T2 signal pattern. No mass lesion or invasion depicted. The rectoprostatic angles are normal. Urinary bladder is normal without wall thickening. The vascular structures of the are normal. The visualized hollow viscus structures are normal. No bone marrow edema or mass lesion depicted. MRI/Pelvis W/WO Contrast IMPRESSION: 1. PIRADS v2.1 2019 -- 2 - Low (clinically significant cancer is unlikely). 2. Since 04/28/2020, no interval change. Electronically Signed: Julio Fuchs (Brooks), at 9:31 EDT ,
[2022-06-14 13:05] LABS: CREATININE FINGERSTICK < 0.9 mg/dL (0.70-1.30); EGFR FINGERSTICK > 60.0000 mL/min (>60)
== END | disposition home or self-care (01) ==
PROVIDERS: PCP Nurse Practitioner Family; Referring Provider Registered Nurse; Visit Provider Registered Nurse
DX: R97.20 Elevated prostate specific antigen [PSA] (principal)
CPT/HCPCS: 72197; A9575

== ENCOUNTER → 2022-12-26 | Outpatient (CLI) | payer MEDICARE, SELFPAY | END | disposition home or self-care (01) | LOC: LAB 13:38 | PROVIDERS: PCP Nurse Practitioner Family; Referring Provider Urology; Visit Provider Urology | DX: R97.20 Elevated prostate specific antigen [PSA] (principal) | CPT/HCPCS: 36415; 84153 ==

== ENCOUNTER → 2023-02-02 | Outpatient (CLI) | payer MEDICARE, SELFPAY ==
--- NOTE | 2023-02-02 | IMM_PTH ---
PATHOLOGY RESULTS PATIENT: NEIL POWERS LOC: [facility] U#:[id number] AGE/SX: 72/M ROOM: RE02/02/[address]: Dr. Gregor Frazier MD : 1950 BED: DIS: 02/02/2023 SPEC #: [id number] RECD: 02/07/23 14:35 STATUS: HOMA REQ #: [id number] [place]: 02/02/23 00:[address]: Gregor Frazier DEPT: IMMUNOHISTOCHEMISTRY RECD BY: Adriana Zamora ENTERED: 02/07/23 14:35 SP TYPE: IMMUNO OTHR DR: Jean-Paul Madsen, SERVICER COIN MACHINES-[place] Tissues: PROSTATE LEFT Procedures: P40 (add) 34BE12 (initial) PHYSICIAN & INSTITUTION [place] [id number] SPECIMEN INFORMATION: Tissue Source: F - Left prostate, apex, core biopsy Clinical Info: BPH with lower urinary tract symptoms, elevated PSA Specimen Number: [id number] CPT code: 04285, 11884 METHODOLOGY: Deparaffinized sections of prefer/formalin-fixed tissue or PAP/DQ stained slides are incubated with monoclonal/polyclonal antibodies/oligonucleotide probes. Localization is made via biotin free immunoperoxidase method. Appropriate controls are performed and reacted as expected. Results on target cell population are indicated in the following table: RESULTS: ANTIBODY / CLONE RESULT Block F P40 (BC28) negative 34BE12 (34BE12) negative These tests were developed and their performance characteristics determined by [facility]. They may not have been cleared or approved by the U.S. Food and Drug Administration. The FDA has determined that such clearance or approval is not necessary. The above immunohistochemical/dualISH markers are ordered and reviewed by the Pathologist. INTERPRETATION: F. Left prostate, apex, core biopsy: Atypical small acinar proliferation (AYANA). SJ:charleen 02/08/2023
--- NOTE | 2023-02-02 | PROSBIL_PTH ---
PATHOLOGY RESULTS PATIENT: NEIL POWERS [facility] U#:[id number] AGE/SX: 72/M ROOM: RE02/02/[address]: Dr. Gregor Frazier MD : 1950 BED: DIS: 02/02/2023 SPEC #: [id number] RECD: 02/06/23 07:42 STATUS: HOMA [place] #: [id number] [place]: 02/02/23 00:[address]: Gregor Frazier DEPT: SURGICAL PATHOLOGY RECD BY: [address]oly [address] ENTERED: 02/06/23 07:42 SP TYPE: PROST BX SARAH DR: Jean-Paul Madsen, FUENTES-[place] [facility] Tissues: PROSTATE RIGHT PROSTATE RIGHT PROSTATE RIGHT PROSTATE LEFT PROSTATE LEFT PROSTATE LEFT Procedures: PROSTATE BX HEADER OPERATION: Prostate biopsy PRE-OP DIAGNOSIS: BPH with lower urinary tract symptoms, elevated PSA TISSUE SUBMITTED: A - Right base, B - Right mid, C - Right apex, D - Left base, E - Left mid, F - Left apex MICROSCOPIC DIAGNOSIS A. Right prostate, base, core biopsy: Prostatic tissue, negative for malignancy. B. Right prostate, mid, core biopsy: Prostatic tissue, negative for malignancy. C. Right prostate, apex, core biopsy: Prostatic tissue, negative for malignancy. Focal moderate chronic and mild acute inflammation. D. Left prostate, base, core biopsy: Prostatic tissue, negative for malignancy. E. Left prostate, mid, core biopsy: Prostatic tissue, negative for malignancy. Focal moderate chronic and mild acute inflammation. F. Left prostate, apex, core biopsy: Focal atypical small acinar proliferation (AYANA). Focal moderate chronic and mild acute inflammation. See comment. SJ:charleen 02/07/2023 COMMENT F. Immunohistochemistry ([id number]) supports the above diagnosis. Case has been reviewed in consultation with Dr. Keller who concurs with the above diagnosis. IDC:AM MICROSCOPIC DESCRIPTION Slides are reviewed. GROSS DESCRIPTION A - Received is one container designated prostate, right base. The specimen consists of two elongated fragments of light martinez-white soft tissue measuring 1.2 and 1.5 cm in length and 0.1 cm in diameter. The specimen is totally submitted in one cassette. B - Received is one container designated prostate, right mid. The specimen consists of two elongated fragments of light martinez-white soft tissue measuring 1.2 and 2.0 cm in length and 0.1 cm in diameter. The specimen is totally submitted in one cassette. C - Received is one container designated prostate, right apex. The specimen consists of three elongated fragments of light martinez-white soft tissue measuring 0.6 to 1.3 cm in length and 0.1 cm in diameter. The specimen is totally submitted in one cassette. D - Received is one container designated prostate, left base. The specimen consists of two elongated fragments of light martinez-white soft tissue each measuring 1.0 cm in length and 0.1 cm in diameter. The specimen is totally submitted in one cassette. E - Received is one container designated prostate, left mid. The specimen consists of three elongated fragments of light martinez-white soft tissue each measuring 1.1 cm in length and 0.1 cm in diameter. The specimen is totally submitted in one cassette. F - Received is one container designated prostate, left apex. The specimen consists of two elongated fragments of light martinez-white soft tissue measuring 1.0 and 1.5 cm in length and 0.1 cm in diameter. The specimen is totally submitted in one cassette. / SJ:rg 02/06/2023 TC:3 CPT: G0146
--- OUTSIDE RECORDS SUMMARY | 2023-02-02 20:20 | XMS RPT_ITS | CCD ---
Author Name Unknown Address [address] [place] [address] Organization [facility] Care Team Providers Care Swaging Machine Operator Name Role Phone DARREL Dempsey CNP, NIKHIL Rodriguez Primary Care [facility] ERNIE LOW, DR ANGELA PRO Attending NIKHIL Fierro APRN, CNP Primary Care U NIKHIL Emmanuel APRN, CNP Primary Care U castro DARLING MD, GRETTA Alcazar Attending Unavailable ELISABET FORMAN Attending Unavailable DARREL Dempsey CNP, NIKHIL Rodriguez Primary Care U navailable Medications Current Medications Medication Drug Class(es) Dates Sig (Normalized) Sig (Original) apremilast 30 mg oral tablet (2 sources) Start: 11-26-2019 take 1 mg by mouth twice daily Otezla 30 mg oral tablet mg = tab(s), Oral, BID, 0 Refill(s) Start Date: 11/26/19 Status: Ordered aspirin 81 mg delayed release oral tablet (2 sources) Platelet Aggregation Inhibitor, Nonsteroidal Anti-inflammatory Drug Start: 11-26-2019 Aspir-Low 81 mg oral delayed release tablet Dose : 81 mg = 1 tab(s), Oral, qDay, # 30 tab(s), 0 Refill(s) Start Date: 11/26/19 Status: Ordered atorvastatin 40 mg oral tablet (2 sources) HMG-CoA Reductase Inhibitor Start: 08-30-2022 Lipitor 40 mg oral tablet Dose : 40 mg = 1 tab(s), Oral, qHS, # 90 tab(s), 3 Refill(s), Pharmacy: [id number], 185, cm, 08/30/22 9:52:00 EDT, Height, kg, 07/26/23 9:52:00 EDT, Dosing Weight Start Date: 08/30/22 Status: Ordered Completed/Discontinued Medications Medication Drug Class(es) Dates Sig (Normalized) Sig (Original) famotidine 20 mg oral tablet (1 source) Histamine-2 Receptor Antagonist Start: 09-08-2022 End: 09-18-2022 Pepcid 20 mg oral tablet Dose : 20 mg = 1 tab(s), Oral, BID, # 20 tab(s), 0 Refill(s), Pharmacy: [id number], Contact dermatitis, 185, cm, 09/08/22 10:14:00 EDT, Height, kg, 09/08/22 10:14:00 EDT, Dosing Weight Start Date: 09/08/22 Stop Date: 09/18/22 Status: Ordered Problems Active Problems Problem Classification Problem Date Documented Da te Episodic/Chronic Acute myocardial infarction (2 sources) Myocardial infarction 11-17-2019 Chronic Past or Other Problems Problem Classification Problem Date Documented Da te Episodic/Chronic Other screening for suspected conditions (not mental disorders or infectious disease) (2 sources) Encounter for screening for malignant neoplasm of colon; Translations: [Encounter for screening for malignant neoplasm of colon] Onset: 06-26-2022 Episodic Results Test Name Value Interpretation Reference Range Facil ity Encounters Encounter Date Encounter Type Care Provider Facility Start: 01-24-2023 End: 01-25-[address] ANGELA KLEIN MD Facility:[facility] Start: 01-24-2023 End: 01-24-[address] ANGELA KLEIN MD [facility] Start: 06-26-2022 End: 06-26-2022 ambulatory ELISABET FORMAN Facility:[facility] Start: 02-09-2022 End: 02-10-2022 ambulatory NIKHIL ROJO BURR MILL OPERATOR - TOPOGRAPHIC COMPUTATOR Facility:[facility] Start: 02-09-2022 End: 02-09-2022 Patient encounter procedure GRETTA DARLING MD [facility] Procedures Date Procedure Procedure Detail Performing Clinician Start: 05-22-[address] ANGELA ORELLANA MD Start: 02-06-2012 Percutaneous translu kevin coronary angioplasty GRETTA DARLING MD Immunizations Immunization Date Immunization Notes Care Provider Fa cili 11-24-2020 SARS-CoV-2 mRNA (tozinameran) vaccine DR ANGELA KLEIN MD [facility] 05-06-2020 SARS-CoV-2 mRNA (tozinameran) vaccine DR ANGELA KLEIN MD [facility] 04-15-2020 SARS-CoV-2 mRNA (tozinameran) vaccine DR ANGELA KLEIN MD [facility] Payers Date Payer Category Payer Private Health Insurance [id number] 1950 Unknown [id number] 1950 Unknown [id number] 1950 Unknown [id number] Social History Date Type Detail Facility Start: 02-09-2021 Tobacco smoking status Smokes tobacco daily (finding) [facility] Evaluation + Plan note Note Date & Type Note Facility Evaluation + Plan note Future Appointments Appointment Date:02/15/2022 08:30:00 AM Scheduled Provider: Location:[facility] Appointment Type:CV OV [facility] Evaluation + Plan note Note Date & Type Note Facility Evaluation + Plan note Future Appointments Appointment Date:08/31/2023 09:00:00 AM Scheduled Provider: Location:[facility] Appointment Type:CV OV [facility] Hospital course Narrative Note Date & Type Note Facility Hospital course Narrative No data available for this section [facility] Hospital Discharge instructions Note Date & Type Note Facility Hospital Discharge instructions No data available for this section [facility] Progress note Note Date & Type Note Facility Progress note No data available for this [facility] Summary Purpose Family History No Family History Records Found Advance Directives No Advanced Directives Records Found Additional Source Comments Care Team (unrecognized sect ion and content) Care Team Personnel Name: NIKHIL ROJO BURR MILL OPERATOR - TOPOGRAPHIC COMPUTATOR Position: P4 Advanced Practice Nurse Member Role: Primary Care Physician Address: Address: [address] [place] [address] Care Team Related Persons Name: RIVKA POWERS Address: Home [address] [place] [address] [phone] Patient Care team informatio n (unrecognized section and content) Care Team Personnel Name: NIKHIL ROJO BURR MILL OPERATOR - TOPOGRAPHIC COMPUTATOR Position: P4 Advanced Gymnas[employer] Teacher Member Role: Primary Care Physician Address: Address: [address] [place] [address] Care Team Related Persons Name: RIVKA POWERS Address: Home [address] [place] [address] [phone] (unrecognized sect ion and content) No Status Records Found INFORMATION SOURCE (unrecogn ized section and content) FOR RECORDS PERTAINING TO PATIENTS WHO ARE OR HAVE BEEN ENROLLED IN A CHEMICAL DEPENDENCY/SUBSTANCEABUSE PROGRAM, SOME INFORMATION MAY BE OMITTED. This clinical summary was aggregated from multiple sources. Caution should be exercised in using it in the provision of clinical care. This summary normalizes information from multiple sources, and as a consequence, information in this document may materially change the coding, format and clinical context of patient data. In addition, data may be omitted in some cases. CLINICAL DECISIONS SHOULD BE BASED ON THE PRIMARY CLINICAL RECORDS. [facility] [email or web address] [facility]. provides no warranty or guarantee of the accuracy or completeness of information in this document.
== END | disposition home or self-care (01) ==
LOC: LABSPEC 15:50
PROVIDERS: PCP Nurse Practitioner Family; Referring Provider Urology; Visit Provider Urology
DX: N40.1 Benign prostatic hyperplasia with lower urinary tract symptoms (principal); R97.20 Elevated prostate specific antigen [PSA]; N41.9 Inflammatory disease of prostate, unspecified
CPT/HCPCS: 88305; 88341; 88342; G0416

== ENCOUNTER → 2023-08-08 | Outpatient (CLI) | payer MEDICARE, SELFPAY ==
[2023-08-12 08:08] LABS: PSA, Free 1.74 ng/mL; PSA, Free % 14.4 % (.)
== END | disposition home or self-care (01) ==
PROVIDERS: PCP Nurse Practitioner Family; Referring Provider Urology; Visit Provider Urology
DX: R97.20 Elevated prostate specific antigen [PSA] (principal)
CPT/HCPCS: 36415; 84153; 84154

== ENCOUNTER → 2023-08-14 | Outpatient (CLI) | payer MEDICARE, SELFPAY ==
[2023-08-14 09:32] LABS: Anion Gap 2 (5-15); BUN 18 mg/dL (7-18); BUN/Creat Ratio 20.9 RATIO (10-20); Chloride 107 mmol/L (98-107); Creatinine, Serum 0.86 mg/dL (0.70-1.30); EST Glomerular Filtration Rate 93 mL/min (>60); Est Glom Filt Rate - Afr Amer 112 mL/min (>60); Glucose 95 mg/dL (74-106); Potassium 4.6 mmol/L (3.5-5.1); Sodium Level 137 mmol/L (136-145)
== END | disposition home or self-care (01) ==
LOC: LAB 08:55
PROVIDERS: PCP Nurse Practitioner Family; Referring Provider Nurse Practitioner; Visit Provider Nurse Practitioner
DX: E87.5 Hyperkalemia (principal)
CPT/HCPCS: 36415; 80048

== ENCOUNTER → 2023-09-03 | Outpatient (CLI) | payer MEDICARE, SELFPAY ==
[2023-09-03 11:04] LABS: Cholesterol 101 mg/dL (200); High Density Lipoprotein 42 mg/dL; Triglycerides 64 mg/dL; Very Low Density Lipoprotein 13 mg/dL (5-40)
[2023-09-03 11:07] LABS: Hemoglobin A1c 5.4 % (3.8-5.6)
== END | disposition home or self-care (01) ==
LOC: LAB 10:05
PROVIDERS: PCP Nurse Practitioner Family; Referring Provider Internal Medicine Interventional Cardiology; Visit Provider Internal Medicine Interventional Cardiology
DX: I10 Essential (primary) hypertension (principal); I25.10 Atherosclerotic heart disease of native coronary artery without angina pectoris; E78.5 Hyperlipidemia, unspecified; G47.30 Sleep apnea, unspecified; F17.200 Nicotine dependence, unspecified, uncomplicated
CPT/HCPCS: 36415; 80061; 83036

== ENCOUNTER → 2024-08-11 | Outpatient (CLI) | payer MEDICARE, SELFPAY ==
[2024-08-11 12:37] LABS: PSA,Total- Diagnostic 9.83 ng/mL (0.00-4.00)
== END | disposition home or self-care (01) ==
LOC: LAB 10:15
PROVIDERS: PCP Nurse Practitioner Family; Referring Provider Nurse Practitioner; Visit Provider Nurse Practitioner
DX: R97.20 Elevated prostate specific antigen [PSA] (principal)
CPT/HCPCS: 36415; 84153